=== PATIENT | female | born 1950 | race Caucasian/White ===

== ENCOUNTER 2017-06-13 10:10 | Emergency (ER) | payer OTHER ==
[~2017-06-13] VITALS: Ht 162.6 cm; Wt 64.2 kg
[2017-06-13] MEDS ORDERED: SYNTHROID75 MCG PO (11:24)
[2017-06-13] MEDS ORDERED: ROSUVASTATIN PO (11:24)
[2017-06-13 11:29] LABS: INFLUENZA A NONE DETECTED (NONE DETECT); INFLUENZA B NONE DETECTED (NONE DETECT)
[2017-06-13 14:29] LABS: HEMATOCRIT 45.1 % (37.0-47.0); HEMOGLOBIN 14.9 g/dl (12.0-16.0); IMMATURE GRANULOCYTES 0.3 % (0.0-1.0); MEAN CELL VOLUME 90.9 fL CALC (80.0-100.0); NEUT# 3.71 thou/uL (2.00-7.15); RED BLOOD COUNT 4.96 mill/uL (4.20-5.60); RED CELL DISTRI WIDTH 12.2 % (11.5-15.5)
[2017-06-13 14:40] LABS: ALBUMIN 4.7 g/dL (3.2-5.0); ALKALINE PHOSPHATASE 107 u/l (38-126); ANION GAP 16 (6-22 (CALC)); BUN 13 mg/dL (8-23); BUN/CREATININE RATIO 20 (12-20 (CALC)); CARBON DIOXIDE 27 mmol/l (22-30); CHLORIDE 108 mmol/l (95-108); CREATININE 0.6 mg/dL (0.5-1.0); GFR > 60 ML/MIN (>=60 (CALC)); GFR FOR AFR.AMER. > 60 ML/MIN (>=60 (CALC)); POTASSIUM 4.3 mmol/l (3.5-5.1); SGOT/AST 27 u/l (9-36); SGPT/ALT 30 u/l (11-66); SODIUM 146 mmol/l (137-146); TOTAL PROTEIN 7.7 g/dL (6.3-8.2)
[2017-06-13] MEDS ORDERED: DELTASONE20 MG PO (15:15)
[2017-06-13] MEDS ORDERED: PROVENTIL HFA IN (15:15)
[2017-06-13] MEDS ORDERED: ZPAK PO (15:15)
[2017-06-13 15:23] VITALS: BP 124/74
== END 2017-06-13 15:25 | disposition home or self-care (01) | DRG 951 ==
LOC: ED 10:10
PROVIDERS: Emergency Medicine
DX: F17.210 Nicotine dependence, cigarettes, uncomplicated (principal); J06.9 Acute upper respiratory infection, unspecified; R05 Cough; R09.81 Nasal congestion; R09.89 Other specified symptoms and signs involving the circulatory and respiratory systems